=== PATIENT | female | born 1975 | race Hispanic/Latino ===

== ENCOUNTER 2024-08-18 09:56 | Day surgery (SDC) | payer OTHER, SELFPAY ==
[2024-08-13 11:21] VITALS: BMI 27.7
[2024-08-18] VITALS (8 sets, daily range): BP systolic 98–120; BP diastolic 49–81; PULSE 68–105; RESP 8–16; TEMP 36.2–37.1; O2SAT 94–98; BMI 27.7
--- NOTE | 2024-08-18 | DI.RAD.S_ITS ---
PROCEDURE: XR FOOT LT 2V INDICATIONS: Post-op TECHNIQUE: 3 views of the foot were acquired. COMPARISON: None. FINDINGS: Bones: Casting material obscures bone detail. Solid fusion across the 1st MTT joint provided by dorsal plate and screws appreciated. Anatomic alignment. Hammertoe deformities in the 2nd through 5th digits appreciated. Joints: Mild degeneration 1st MTP joint noted. Soft tissues: No soft tissue abnormality. IMPRESSION: Chronic findings as above Dictated by: Terrell Head M.D. on 08/19/2024 at 8:53 Approved by: Terrell Heda M.D. on 08/19/2024 at 8:55
--- NOTE | 2024-08-18 05:46 | PM.PREOP ---
Pre-operative Note Interval Note History & Physical reviewed/Exam performed by Physician: Yes Changes to H&P: No
--- NOTE | 2024-08-18 05:47 | PM.HP.1 ---
History of Present Illness History of Present Illness Chief complaint: Left Arthrodesis Toe Narrative: 49 year old female here for painful bunions on both feet. Left side is worse than right, and the symptoms deteriorated over the last couple of years. It is numb and hurts a lot at the end of the day. Wearing high heels on occasions make it worse. 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 Patient is interested in proceeding with surgical intervention. Patient denies n/v/f/c/sob/cp. [facility] Medical History (Updated 08/13/24 @ 11:58 by Chayito Richard RN) Bilateral bunions Chronic myelocytic leukemia History of Helicobacter pylori infection Gastric intestinal metaplasia Gastric ulcer Iron deficiency Elevated liver enzymes Prediabetes Fatty liver Hyperlipidemia Hypothyroid HTN (hypertension) Surgical History (Updated 08/13/24 @ 11:47 by Chayito Richard RN) History of esophagogastroduodenoscopy (EGD) History of colonoscopy with polypectomy History of section Social History household members: spouse Smoking Status: Former smoker alcohol intake: former Meds Home Medications and Allergies Home Medications Medication Instructions Recorded Confirmed Type citalopram 20 mg tablet 20 mg PO DAILY 08/13/24 08/13/24 History levothyroxine 88 mcg tablet 88 mcg PO DAILY 08/13/24 08/13/24 History lisinopril 20 1 tab PO DAILY 08/13/24 08/13/24 History mg-hydrochlorothiazide 25 mg tablet omeprazole 20 mg capsule,delayed 20 mg PO DAILY 08/13/24 08/13/24 History release Allergies Allergy/AdvReac Type Severity Reaction Status Date / Time No Known Drug Allergies Allergy Verified 08/13/24 11:47 Exam Extrem Other: Left foot: Mild medial deviation of metatarsal 1 and lateral deviation of hallux. Mild lateral deviation of metatarsal 5 and medial deviation of toe 5. Adequate 1st MTP ROM without pain and increased sagittal instability of ray 1. Mild pain on palpation to medial eminence. Assessment & Plan Assessment & Plan narrative: 1. Left foot midfoot instability 2. Left foot bunion Patient seen and evaluated. Surgical plan: Left foot Lapidus arthrodesis and possible proximal phalanx rotational osteotomy. Risks and benefits of the procedure discussed with all questions answered to patient's satisfaction. Reviewed potential complications that may include but not limited to the following: DVT, failure to resolve all symptoms, infection, nerve injury, bleeding, recurrence, or wound. Reviewed surgical technique and general aftercare protocols. All questions answered to patient's satisfaction with no guarantees made. Patient verbalized understanding and agreed with surgical plan. RTC for post-op. Time-Based Coding :: [TOTAL MINUTES] spent with patient and on the chart (including review of chart, obtaining history, exam, reviewing outside data, placing orders, documenting exam and treatment plan, and counseling patient) on [DATE].
[2024-08-18] MEDS: LACTATED RINGERS 1,000 ML 42 ML IV ×2 (10:22→12:50)
[2024-08-18] MEDS: ACETAMINOPHEN 325 MG TABLET 975 MG PO (10:22)
[2024-08-18 10:31] LABS: COVID19 -Nasal RAPID Negative (Negative)
[2024-08-18] MEDS: CEFAZOLIN 2 GM/100 ML PREMIX 100 ML IV (12:04)
--- NOTE | 2024-08-18 12:44 | SUR.OPER ---
Supine on padded OR bed, head on pillow, arms secured on padded arm boards at <90 degrees abduction, legs uncrossed, bump under right hip, safety belt at thigh, tape over blanket over lower legs.
[2024-08-18] MEDS: SODIUM CHLORIDE IRRIG SOLUTION 3,000 ML, GENTAMICIN 240 MG IRR (12:48)
--- NOTE | 2024-08-18 17:29 | SUR.PHASEII ---
Pt voided prior to discharge
--- NOTE | 2024-08-22 05:57 | PM.OP.1 ---
Operative Date/Time/Diagnoses Date of procedure: 08/18/24 Pre-op diagnosis: 1. Left midfoot flail joint 2. Left forefoot bunion Post-op diagnosis: same Procedure & Clinicians Procedure: 1. Left midfoot arthrodesis, single joint 2. Left forefoot bunion correction 3. Left hindfoot autograft harvest Same procedure as scheduled: Yes Indications: Progressive deformity and pain to left foot, impacting activities of daily living. Surgeon: Rosalino Lechuga Click Yes if Unassisted: Yes Anesthesia Type: General Operative Notes Findings: 1. Hypermobility and instability to left first tarsometatarsal joint. 2. Rotational deformity with inflamed bursa to first metatarsophalangeal joint. Closure Type: primary Specimen(s): none sent Estimated Blood Loss (mL): 95 Tourniquet time (min): 150 Procedure in detail: Patient was identified, brought into operating room on a gurney, and transferred onto operating table in supine position. Regional block was administered in holding area, and general anesthesia was inducted in operating room. A thigh tourniquet was placed over well-padded surface and set to 275 mmHg. Left lower limb was then prepped and draped in the usual sterile fashion, followed by official timeout with surgical team all in agreement. Attention was directed to left midfoot. A linear incision was made over first tarsometatarsal joint using a # 15 scalpel. Dissection was carried out in layers from skin down to the level bone. Care was taken to protect the tendons and neurovascular structures. An osteotome was used to free up the adhesion within and around the first tarsometatarsal joint. Appropriate guide and positioning device from the Lapiplasty system were used per manufacture instructions, and subsequent cuts were made using a sagittal saw under power. The removed surfaces were then fenestrated using a drill bit. Decision was made obtain autograft from the calcaneus. Attention was carried to the left heel, and a stab incision was made over verified location on fluoroscopy. Harvesting was done per manufacture instructions with the Fast Graft system. The heel incision was then irrigated and closed using a 4-0 nylon. The obtained bone graft was then added into the first tarsometatarsal joint to augment the fusion. Attention was simultaneously directed to left forefoot, where a linear incision was made using a #15 scalpel over lateral aspect of first metatarsophalangeal joint. Dissection was carried out from skin down to the bone, and a Speed Release instrument was inserted to free up the fibular sesamoid complex. Attention was also directed to medial eminence of first metatarsal head, where a linear incision was made using a #15 scalpel. Dissection was carried out from skin down to the capsule, where thickened bursal sac as well as hypertrophic tissue were identified and sharply removed. Attention was redirected back to left midfoot. At this time, decision was made to finalize the arthrodesis site using designated hardware from Lapiplasty. Surgical corrections were visualized under fluoroscopy to verify anatomical alignment. All surgical sites were irrigated using copious saline mixed with gentamicin solution. Tourniquet was released, and immediate capillary refill noted to all toes. All incision sites were closed from deep to superficial using a range of 2-0 vicryl, 3-0 vicryl, 4-0 vicryl, 3-0 nylon, and 4-0 nylon. Left foot was cleaned and dried, and iodine soaked Adaptic was applied to all procedure sites. Bulk sterile dressings were used to cover the foot and leg, and a posterior splint was made and secured with elastic bandage wraps. Patient tolerated procedure without complication and was transferred to PACU with vital signs stable. Complications: none Post-operative Condition: stable Disposition: same day surgery Plan for aftercare: NWB, elevate above heart, and ice behind knee to surgical limb. Keep dressing clean, dry, and intact and follow-up as scheduled.
== END 2024-08-18 17:15 | disposition home or self-care (01) ==
PROVIDERS: PCP Family Medicine; Referring Provider Podiatrist Foot & Ankle Surgery; Visit Provider Podiatrist Foot & Ankle Surgery
PROC: (CPT 28740; principal; 2024-08-18 11:30)
DX: M21.612 Bunion of left foot (principal); M25.272 Flail joint, left ankle and foot; G89.18 Other acute postprocedural pain; Z11.52 Encounter for screening for COVID-19
CPT/HCPCS: 28740; 20900; 28292; 64450; 73620; 87635; C1776; J0690; J1100; J1170; J2405; J2704

== ENCOUNTER 2025-08-13 07:53 | Day surgery (SDC) | payer OTHER, SELFPAY ==
[2025-08-06 13:22] VITALS: BMI 28.3
[2025-08-13] VITALS (7 sets, daily range): BP systolic 103–119; BP diastolic 52–68; PULSE 72–95; RESP 8–17; TEMP 36.5–36.8; O2SAT 96–98; BMI 28.3
--- NOTE | 2025-08-13 06:40 | PM.HP.1 ---
History of Present Illness History of Present Illness Chief complaint: Right Bunionectomy Narrative: 50 year old female here for painful bunions on right foot. Left side is doing well overall, and patient would like to proceed with surgery on the right now. The right side has been getting worse over the year. Patient denies new health concerns. Patient denies n/v/f/c/sob/cp. [facility] Medical History (Updated 08/06/25 @ 13:29 by Melissa Mary RN) Influenza B (05/12/25) Thrombocythemia Bilateral bunions Chronic myelocytic leukemia History of Helicobacter pylori infection Gastric intestinal metaplasia Gastric ulcer Iron deficiency Elevated liver enzymes Prediabetes Fatty liver Hyperlipidemia Hypothyroid HTN (hypertension) Surgical History (Updated 08/06/25 @ 13:29 by Melissa Mary RN) History of refractive surgery (2005) H/O liposuction (2004) S/P foot surgery, left (08/18/24) History of esophagogastroduodenoscopy (EGD) History of colonoscopy with polypectomy History of section Social History household members: spouse Smoking Status: Former smoker alcohol intake: former Meds Home Medications and Allergies Home Medications ?Medication ?Instructions ?Recorded ?Confirmed ?Type citalopram 20 mg tablet 20 mg PO DAILY 08/13/24 08/18/24 History levothyroxine 88 mcg tablet 88 mcg PO DAILY 08/13/24 08/18/24 History lisinopril 20 1 tab PO DAILY 08/13/24 08/18/24 History mg-hydrochlorothiazide 25 mg tablet omeprazole 20 mg capsule,delayed 20 mg PO DAILY 08/13/24 08/18/24 History release oxycodone-acetaminophen 5 mg-325 1 tab PO Q4-6H PRN pain #40 tabs 08/18/24 Rx mg tablet (Percocet) semaglutide (weight loss) 0.25 0.25 mg SUBCUT QWEEK 08/06/25 08/06/25 History mg/0.5 mL subcutaneous pen injector (Wegovy) Allergies Allergy/AdvReac Type Severity Reaction Status Date / Time No Known Drug Allergies Allergy Verified 08/18/24 10:10 Exam Extrem Other: Right foot: Moderate medial deviation of metatarsal 1 and lateral deviation of hallux. Mild lateral deviation of metatarsal 5 and medial deviation of toe 5. Assessment & Plan Assessment & Plan narrative: 1. Right foot bunion Patient seen and evaluated. Surgical plan: right foot Lapidus arthrodesis. Risks and benefits of the procedure discussed with all questions answered to patient's satisfaction. Reviewed potential complications that may include but not limited to the following: DVT, failure to resolve all symptoms, infection, nerve injury, bleeding, recurrence, or wound. Reviewed surgical technique and general aftercare protocols. All questions answered to patient's satisfaction with no guarantees made. Patient verbalized understand Time-Based Coding :: [TOTAL MINUTES] spent with patient and on the chart (including review of chart, obtaining history, exam, reviewing outside data, placing orders, documenting exam and treatment plan, and counseling patient) on [DATE].
--- NOTE | 2025-08-13 06:44 | PM.PREOP ---
Pre-operative Note Interval Note History & Physical reviewed/Exam performed by Physician: Yes Changes to H&P: No
[2025-08-13] MEDS: LACTATED RINGERS 1,000 ML 42 ML IV ×2 (08:15→13:36)
[2025-08-13] MEDS: FAMOTIDINE 20 MG/2 ML VIAL IV (08:15)
--- NOTE | 2025-08-13 09:59 | SUR.PREOP ---
Block start time [0944] . Monitoring initiated and maintained throughout procedure. Oxygen and medications given per anesthesiologist instructions. Patient remained stable throughout procedure, no adverse reactions noted. Block end time [0955].
[2025-08-13] MEDS: KETOROLAC 30 MG/ML VIAL 15 MG IV (13:48)
--- NOTE | 2025-08-14 08:25 | P.OP_ITS ---
Operative Date/Time/Diagnoses Date of procedure: 08/13/25 Time of procedure: 09:45 Pre-op diagnosis: 1. Right midfoot instability 2. Right hallux valgus Post-op diagnosis: same Procedure & Clinicians Procedure: 1. Right midfoot fusion with arthrodesis of first metatarsocuneiform joint 2. Right hallux valgus correction with Phil osteotomy 3. Right calcaneal bone graft harvest Same procedure(s) as scheduled: Yes Indications: Right foot pain and progressive deformities of forefoot secondary to midfoot hypermobility Surgeon: Rosalino Lechuga Click Yes if Unassisted: Yes Anesthesia Type: General and Peripheral nerve block Operative Notes Findings: Consistent with diagnosis and indications Closure Type: primary Specimen(s): none sent Applied: implant(s) (Arthrex) Estimated Blood Loss (mL): 30 Blood products transfused: none Tourniquet time (min): 180 Procedure in detail: Patient was identified, brought into operating room on a gurney, and transferred onto operating table in supine position. Regional block was administered in holding area, and general anesthesia was inducted in operating room. A thigh tourniquet was placed over well-padded surface and set to 300 mmHg. Right lower limb was then prepped and draped in the usual sterile fashion, followed by official timeout with surgical team all in agreement. Attention was directed to the right midfoot. A linear incision was made over first tarsometatarsal joint using a # 15 scalpel. Dissection was carried out in layers from skin down to the level joint and bone. Care was taken to protect the tendons and neurovascular structures. An osteotome was used to free up the adhesion within and around the first tarsometatarsal joint. The joint was then distracted, and the subchondral surface was removed with cuts made at a ppropriate angle using a sagittal saw. The removed surfaces were then fenestrated using a drill bit and a curette. Decision was made to obtain autograft from the calcaneus. Attention was carried to the left heel, and a stab incision was made over verified location on fluoroscopy. Harvesting was done per manufacture instructions for the system. The heel incision was then irrigated and closed using a 3-0 nylon. The obtained bone graft was then added into the first tarsometatarsal joint to augment the fusion. A separate stab incision was also made at the first metatarsophalangeal joint with dissection carried down to the fibular sesamoid apparatus using a hemostat, and a lateral release was performed using a scissor to allow for proper rotation of the metatarsal.The first metatarsocuneiform joint was then temporarily fixed, followed by compression screw and plate application per manufacture instructions with fluoroscopy verification of the position fixated. Attention was also directed to medial eminence of first metatarsal head, where a linear incision was made using a #15 scalpel. Dissection was carried out from skin down to the capsule, where thickened bursal sac as well as hypertrophic tissue were identified and sharply removed. The incision was then extended to the proximal phalanx. Dissection was carried down to bone, and a medal based wedge was made to the proximal aspect of proximal phalanx. After appropriate alignment was observed on fluoroscopy, the osteotomy was fixated with a screw. All surgical sites were irrigated using copious saline mixed with gentamicin solution. Tourniquet was released, and immediate capillary refill noted to all toes. All incision sites were closed from deep to superficial using a range of 2-0 vicryl, 3-0 vicryl, 4-0 vicryl, 3-0 nylon, and 4-0 nylon. Right foot was cleaned and dried, and iodine soaked Adaptic was applied to all procedure sites. Bulk sterile dressings were used to cover the foot and leg, and a posterior splint was made and secured with elastic bandage wraps. Patient tolerated procedure without complication and was transferred to PACU with vital signs stable. Complications: none Post-operative Condition: stable Disposition: same day surgery Plan for aftercare: NWB to surgical limb. Elevate above heart. Ice behind knee. Keep dressing clean, dry, and intact.
== END 2025-08-13 14:45 | disposition home or self-care (01) ==
PROVIDERS: PCP Family Medicine; Referring Provider Family Medicine; Visit Provider Podiatrist Foot & Ankle Surgery
PROC: 0QBN0ZZ Excision of Right Metatarsal, Open Approach (ICD-10-PCS; CPT 28292; principal; 2025-08-13 09:15)
DX: M25.374 Other instability, right foot (principal); M21.611 Bunion of right foot; M20.11 Hallux valgus (acquired), right foot; G89.18 Other acute postprocedural pain; Z87.891 Personal history of nicotine dependence
CPT/HCPCS: 28740; 20900; 28292; 64450; 81025; C1713; J0689; J1100; J1171; J1885; J2250; J2405; J2704; J3010